=== PATIENT | female | born 1965 | race Caucasian/White ===

== ENCOUNTER 2017-07-13 16:32 | Emergency (ER) | payer OTHER ==
[~2017-07-13] VITALS: Ht 162.6 cm; Wt 79.8 kg
[2017-07-13 17:23] VITALS: Ht 162.6 cm; Wt 79.8 kg
[2017-07-13 19:49] VITALS: BP 110/71
== END 2017-07-13 19:49 | disposition home or self-care (01) ==
LOC: ED 16:32
DX: J20.9 Acute bronchitis, unspecified (principal); J06.9 Acute upper respiratory infection, unspecified

== ENCOUNTER → 2018-04-11 | Outpatient (CLI) | payer OTHER ==
[2018-04-11 07:49] LABS: BASOPHIL % 0.3 % (0-2); PLATELET COUNT 200 x10^3mcL (130-400); RED CELL DISTRIBUTION WIDTH 13.3 % (11.5-14.5)
[2018-04-11 08:07] LABS: ALBUMIN 3.5 g/dL (3.4-5.0); ALKALINE PHOSPHATASE 76 U/L (46-116); ALT/SGPT 31 U/L (14-59); AST/SGOT 13 U/L (15-37); BILIRUBIN TOTAL 0.4 mg/dL (0.20-1.00); CALCIUM 8.8 mg/dL (8.5-10.1); CARBON DIOXIDE 27.9 mmol/L (21-32); CHLORIDE SERUM 106 mmol/L (98-107); CHOLESTEROL 169 mg/dL (<200); CREATININE SERUM 0.8 mg/dL (0.6-1.0); GFR1 > 60 mL/min; GLUCOSE SERUM 110 mg/dL (74-106); HDL CHOLESTEROL 42 mg/dL (40-60); POTASSIUM SERUM 4.4 mmol/L (3.5-5.1); SODIUM SERUM 141 mmol/L (136-145); TOTAL PROTEIN, SERUM 7.4 g/dL (6.4-8.2); TRIGLYCERIDES 113 mg/dL (<150)
== END | disposition home or self-care (01) ==
LOC: LB 07:28
DX: Z76.89 Persons encountering health services in other specified circumstances (principal)

== ENCOUNTER 2019-11-19 15:38 | Emergency (ER) | payer OTHER ==
[~2019-11-19] VITALS: Ht 149.9 cm; Wt 83.9 kg
[2019-11-19 15:48] VITALS: Ht 149.9 cm; Wt 83.9 kg
[2019-11-19 16:49] VITALS: BP 122/75
== END 2019-11-19 16:49 | disposition home or self-care (01) ==
LOC: ED 15:38
DX: S39.012A Strain of muscle, fascia and tendon of lower back, initial encounter (principal); X50.0XXA Overexertion from strenuous movement or load, initial encounter; Y93.89 Activity, other specified; Y92.89 Other specified places as the place of occurrence of the external cause; Y99.8 Other external cause status
CPT/HCPCS: J1885

== ENCOUNTER 2020-02-26 15:48 | Emergency (ER) | payer OTHER ==
[~2020-02-26] VITALS: Ht 149.9 cm; Wt 82.6 kg
[2020-02-26 15:56] VITALS: BP 109/65; Ht 149.9 cm; Wt 82.6 kg
== END 2020-02-26 16:48 | disposition home or self-care (01) ==
LOC: ED 15:48
DX: S63.501A Unspecified sprain of right wrist, initial encounter (principal); S80.02XA Contusion of left knee, initial encounter; W22.8XXA Striking against or struck by other objects, initial encounter; Y93.89 Activity, other specified; Y92.89 Other specified places as the place of occurrence of the external cause; Y99.8 Other external cause status